=== PATIENT | male | born 1975 | race Caucasian/White ===

== ENCOUNTER 2019-12-27 08:39 | Outpatient (CLI) | payer OTHER, SELFPAY ==
[2019-12-28 06:44] LABS: SARS-CoV-2 RNA PCR Positive
== END 2019-12-27 08:40 | disposition home or self-care (01) ==
LOC: CHSLAB 08:48
PROVIDERS: PCP Internal Medicine; Visit Provider Internal Medicine
DX: U07.1 COVID-19 (principal)
CPT/HCPCS: 87635; C9803; U0003

== ENCOUNTER 2024-05-16 17:02 | Outpatient (NON) | payer SELFPAY ==
--- OUTSIDE RECORDS SUMMARY | 2024-05-16 17:13 | XMS_ITS | Clinical Summary ---
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 30 tablet 11/24/2023 Active Social History Tobacco Use Types Packs/Day Years Used Date Smoking Tobacco: Every Day Cigarettes Smokeless Tobacco: Never Tobacco Cessation:Ready to Q uit: Not Asked; Counseling Given: Not Answered Alcohol Use Standard Drinks/Week Comments Yes 0 (1 standard drink = 0.6 oz pur e alcohol) occ. Sex and Gender Information Value Date Recorded Sex Assigned at Not on file Legal Sex Male 5:43 PM [employer] Gender Identity Not on file Sexual Orientation Not on file Last Filed Vital Signs Vital Sign Reading Time Taken Comments Blood Pressure 127/87 11/24/2023 6:00 PM CDT Pulse 66 11/24/2023 6:00 PM CDT Temperature 36.7 C (98.1 F) 11/24/2023 5:13 PM CDT Respiratory Rate 19 11/24/2023 6:00 PM CDT Oxygen Saturation 100% 11/24/2023 6:00 PM CDT Inhaled Oxygen Concentration - - Weight 83.5 kg (184 lb) 11/24/2023 5:13 PM CDT Height 172.7 cm (5' 8 ) 11/24/2023 5:13 PM CDT Body Mass Index 27.98 11/24/2023 5:13 PM CDT Plan of Treatment Health Maintenance Due Date Last Done Comments Colorectal Cancer Screening Colonoscopy (10 Years) 1977 Annual Physical 1980 Pneumococcal Vaccine: Pediatrics (0 to 5 Years) and At-Risk Patients (6 to 64 Years) (1 of 2 - PCV) 09/16/1983 Hepatitis C 09/16/1995 Hepatitis B Vaccines (1 of 3 - 19+ 3-dose series) 1996 DTaP, Tdap and Td Vaccines (7 - Td or Tdap) 04/12/2022 04/12/2012, 04/05/1991, 09/30/1982, Additional history exists COVID-19 Vaccine ( - 2023- season) 2023 Meningococcal B Vaccine Aged Out No l onger eligible based on patient's age to complete this topic Meningococcal Vaccine Aged Out No jeannette nani eligible based on patient's age to complete this topic RSV Immunizations Under 20 Months Aged Out No longer eligible based on patient's age to complete this topic Insurance [facility] Care Teams Lithographic Artist Relationship Specialty Start Date End Date Christin Mann MD [address] [place] [id number] PCP - General FAMILY PRACTICE 11/23/23
== END 2024-05-16 17:03 | disposition home or self-care (01) ==
LOC: CHSLAB 17:06
DX: D48.5 Neoplasm of uncertain behavior of skin (principal)
CPT/HCPCS: 88305